=== PATIENT | female | born 1985 | race African-American/Black ===

== ENCOUNTER 2017-08-09 07:07 | Emergency (ER) | payer OTHER ==
[~2017-08-09] VITALS: Ht 160 cm; Wt 55.0 kg
[2017-08-09 10:35] VITALS: BP 129/79
== END 2017-08-09 12:40 | disposition home or self-care (01) ==
LOC: ER 09:02
DX: S90.121A Contusion of right lesser toe(s) without damage to nail, initial encounter (principal); W22.8XXA Striking against or struck by other objects, initial encounter; Y93.89 Activity, other specified; Y92.092 Bedroom in other non-institutional residence as the place of occurrence of the external cause
CPT/HCPCS: 73630; 99284